=== PATIENT | male | born 1990 | race Caucasian/White ===

== ENCOUNTER 2022-12-10 03:47 | Emergency (ER) | payer OTHER ==
[~2022-12-10] VITALS: Ht 185.4 cm; Wt 108.2 kg
[2022-12-10] MEDS ORDERED: KETOROLAC 30 MG/ML 1ML VIAL IM ONE (09:20)
[2022-12-10 09:23] VITALS: BP 139/89; TEMP 96.3; O2SAT 98
== END 2022-12-10 09:30 | disposition home or self-care (01) ==
LOC: M ED 03:47
DX: H92.01 Otalgia, right ear (principal); F17.200 Nicotine dependence, unspecified, uncomplicated
CPT/HCPCS: 70486; 96372; 99283; J1885

== ENCOUNTER → 2023-04-23 | Outpatient (CLI) | payer OTHER | LOC: M PLAIMG 12:16 | PROVIDERS: ATTEND Nurse Practitioner Family | DX: M25.511 Pain in right shoulder (principal); M25.512 Pain in left shoulder; M54.2 Cervicalgia; M25.561 Pain in right knee; M25.562 Pain in left knee ==

== ENCOUNTER → 2023-09-25 | Outpatient (CLI) | payer OTHER | LOC: M PLAIMG 11:13 | PROVIDERS: ATTEND Physician Assistant | DX: H92.02 Otalgia, left ear (principal) ==

== ENCOUNTER → 2023-10-28 | Outpatient (REF) | LOC: M PLAIMG 10:59 | PROVIDERS: ATTEND Internal Medicine | DX: R52 Pain, unspecified (principal) ==